=== PATIENT | female | born 1995 | race Two or more races ===

== ENCOUNTER 2019-09-17 15:00 | Emergency (ER) | payer OTHER ==
[~2019-09-17] VITALS: Ht 167.6 cm; Wt 100.0 kg
--- NOTE | 2019-09-17 15:15 | NUR ---
First contact with pt. Dayna DOHERTY at bedside to evaluate pt. Pt states that yesterday she ate pizza, is lactose intolerant. Pt c/o abd pain 03/13, N/V/D. Pt placed in gown, positioned for comfort in bed.
[2019-09-17] MEDS ORDERED: ONDANSETRON ODT 4 MG ONE (15:19)
[2019-09-17 15:38] LABS: BASOPHILS # (AUTO) 0.03 x10^3/uL (0-0.1); BASOPHILS % (AUTO) 0 % (0-1); EOSINOPHILS # (AUTO) 0.09 x10^3/uL (0-0.4); EOSINOPHILS % (AUTO) 1 % (1-7); LYMPHOCYTES # (AUTO) 1.74 x10^3/uL (1-3.4); LYMPHOCYTES % (AUTO) 13 % (22-44); MD NO; MEAN CORPUSCULAR HEMOGLOBIN 25.7 pg (27.0-34.8); MEAN CORPUSCULAR HGB CONC 33.1 g/dL (32.4-35.8); MEAN CORPUSCULAR VOLUME 77.7 fL (80-100); MEAN PLATELET VOLUME 9.7 fL (7.4-10.4); MONOCYTES # (AUTO) 0.82 x10^3/uL (0.2-0.8); MONOCYTES % (AUTO) 6 % (2-9); NEUTROPHILS # (AUTO) 10.53 x10^3/uL (1.8-6.8); NEUTROPHILS % (AUTO) 80 % (42-75); PLATELET COUNT 251 x10^3/uL (130-400); RED BLOOD COUNT 3.97 x10^6/uL (3.82-5.3); RED CELL DISTRIBUTION WIDTH 16.2 % (9.6-15.2)
[2019-09-17] MEDS ORDERED: MAALOX/HYOSCYAMINE/LIDOCAINE 45 ML BTL ONE (15:38)
--- NOTE | 2019-09-17 15:43 | NUR ---
Pt states no nausea after zofran. Pt medicated with GI cocktail per MAR. Given UA cup. Pt states she will provide urine sample as soon as she is able to.
[2019-09-17 15:46] LABS: ALANINE AMINOTRANSFERASE 18 U/L (12-78); ALBUMIN 3.5 g/dL (3.4-5.0); ANION GAP 6 mmol/L (5-15); CALCIUM 8.3 mg/dL (8.5-10.1); CHLORIDE 109 mmol/L (98-107)
[2019-09-17 15:51] LABS: ALKALINE PHOSPHATASE 79 U/L (45-117); BILIRUBIN,TOTAL 0.3 mg/dL (0.2-1.0); TOTAL PROTEIN 7.3 g/dL (6.4-8.2)
[2019-09-17] MEDS ORDERED: ONDANSETRON ODT 4 MG PO ONE (16:00)
[2019-09-17] MEDS ORDERED: MAALOX/HYOSCYAMINE/LIDOCAINE 45 ML BTL PO ONE (16:00)
--- NOTE | 2019-09-17 16:09 | NUR ---
Pt states abd pain improved after medication. Pt able to provide urine sample. Specimen labeled at bedside and sent to lab. Pt provided more water per request. Pt tolerating PO fluids without N/V. Pt denies other needs.
[2019-09-17 16:10] VITALS: BP 111/46
[2019-09-17 16:25] LABS: MICROSCOPIC NOT IND
[2019-09-17 16:26] LABS: CULTURE INDICATED? NO
--- NOTE | 2019-09-17 16:41 | NUR ---
Dr. Marmolejo at bedside to evaluate pt and discuss POC.
== END 2019-09-17 17:08 | disposition home or self-care (01) ==
LOC: ED 16:44
DX: R10.30 Lower abdominal pain, unspecified (principal); R11.2 Nausea with vomiting, unspecified
CPT/HCPCS: 36415; 80053; 81003; 83690; 84703; 85025; 99283; Q0162